=== PATIENT | female | born 1985 | race African-American/Black ===

== ENCOUNTER 2019-08-01 06:21 | Emergency (ER) | payer BC ==
[~2019-08-01] VITALS: Ht 180.3 cm; Wt 123.8 kg
[2019-08-01] MEDS ORDERED: ONDANSETRON HCL INJ 2MG/ML 2ML 2 MG/ML VIAL IV STA (06:41)
[2019-08-01] MEDS ORDERED: ONDANSETRON HCL INJ 2MG/ML 2ML 2 MG/ML VIAL ONE (06:42)
[2019-08-01] MEDS ORDERED: SODIUM CHLORIDE 0.9% 1000ML 1,000 ML IV SCH ×2 (06:45→08:00)
--- NOTE | 2019-08-01 07:00 | NUR ---
Assumed care of pt, pt in radiology at this time.
[2019-08-01] MEDS ORDERED: SODIUM CHLORIDE 0.9% 1000ML 1,000 ML ONE (07:57)
[2019-08-01] MEDS ORDERED: POTASSIUM CHLORIDE 20 MEQ TAB CR PO ONE ×2 (07:57→08:30)
--- NOTE | 2019-08-01 08:08 | Diagnostic Imaging Report ---
[facility] HISTORY: Dizziness COMPARISON: None. TECHNIQUE: Noncontrast axial scans were obtained from skull base to the vertex. Coronal and sagittal reconstructions obtained from the axial data. One or more of the following dose reduction techniques were used: Automated exposure control, adjustment of the mA and/or kV according to patient size, and/or utilization of iterative reconstruction technique. Beam hardening artifacts obscure some details. DISCUSSION: Scalp/Skull: Unremarkable. Brain sulci: Appropriate for patient's age. Ventricles: Normal in size and configuration. No hydrocephalus. Extra-axial spaces: No masses or fluid collections. Parenchyma: Approximately 0.7 cm subtle, hypodense lesion in the right subinsular region is nonspecific. There is no significant mass effect. Otherwise, no hemorrhage, or large vascular territory acute infarct. Dural sinuses: No abnormal densities. Sellar/Suprasellar region: Intact. Skull base: Intact. Incidental findings: None. IMPRESSION: 1. No acute intracranial abnormalities. 2. Nonspecific subcentimeter right subinsular hypodense lesion could be a prominent perivascular space. This can be further characterized with a nonemergent brain MRI. Signed by: Dr. Jh Jaimes M.D. on 08/01/2019 8:05 AM
[2019-08-01] MEDS ORDERED: ONDANSETRON ODT8 MG PO (08:10)
[2019-08-01 08:57] VITALS: BP 142/81
== END 2019-08-01 09:15 | disposition home or self-care (01) ==
LOC: FSED 06:21
DX: R42 Dizziness and giddiness (principal); R11.2 Nausea with vomiting, unspecified; E87.6 Hypokalemia
CPT/HCPCS: 70450; 80053; 81003; 81025; 82553; 84484; 85025; 93005; 96374; 99284; J2405; J7030